=== PATIENT | female | born 1975 | race Caucasian/White ===

== ENCOUNTER → 2019-11-10 10:19 | Outpatient (BNVA) | payer MEDICAID, SELFPAY | PROVIDERS: Family Provider Nurse Practitioner; PCP Registered Nurse; Referring Provider Family Medicine; Visit Provider Podiatrist Foot & Ankle Surgery | DX: M79.671 Pain in right foot (principal); M25.571 Pain in right ankle and joints of right foot; M85.871 Other specified disorders of bone density and structure, right ankle and foot | CPT/HCPCS: 73610; 73630 ==

== ENCOUNTER 2020-03-04 13:21 | Outpatient (CLI) | payer MEDICAID, SELFPAY ==
[2020-03-04 13:58] LABS: Basophils # 0.1 10^3/uL (0.0-0.1); Basophils % 0.6 %; Eosinophils # 0.2 10^3/uL (0.0-0.8); Hematocrit 46.2 % (37.0-47.0); Lymphocytes # 3.4 10^3/uL (0.8-4.8); Lymphocytes % 35.4 %; Mean Corpuscular HGB Conc 32.5 g/dL (30.0-36.0); Mean Corpuscular Volume 98.5 fL (81-99); Mean Platelet Volume 11.8 fL (7.4-10.4); Monocytes # 0.3 10^3/uL (0.2-0.9); Neutrophils # 5.65 10^3/uL (1.8-7.7); Neutrophils % 58.7 %; Nucleated Red Blood Cells % 0 %; Platelet Count 191 10^3/cmm (130-400); Red Blood Count 4.69 10^6/uL (4.1-5.3); Red Cell Distribution Width 13.1 % (12.1-15.1); White Blood Count 9.6 10^3/uL (4.0-10.0)
--- NOTE | 2020-03-04 15:50 | ONC CON_ITS ---
Dr. Knight New Patient Note Patient: Rayne Franz Unit #: [id number]: 1975 Dicatated By: Valentin Knight M.D.Date of Visit: Mar 04, 2020 Onc MED New Patient/Consult Referring Physician: Dr. Hu Izaguirre M.D. History of Present Illness: Ms. Rayne Franz, is a 44-year-old female with yearlong history of 'too much' blood in her system , as per patient .she was just told on February 12, 2020 about this finding and was referred to hematology clinic for evaluation. Patient is a heavy smoker, smokes about pack a day for the last 20 years, prior to that , she used to smoke half a pack / day since age 12 or 13. She also has history of snoring and off-and-on gasping for air at night, as per patient, last time she noticed that about 4 months ago. She sleeps on the side and cannot lay on her back because of' acidity'. Patient said in recent past she had leg injury and during that time she used to sleep in recliner much better and he used to feel fresh next day otherwise usually she feels tired and fatigued all day long. Denies any headaches denies any chest pain or shortness breath denies any blurred vision double vision denies any abdominal fullness. Past Medical History: Ms. Franz's medical history consists of anxiety, hyperlipidemia, hypertension, and type II diabetes. Past Surgical History: Ms. Franz's surgical/procedural history consists of breast biopsy - right breast, fragmenting of kidney stone, right leg/ankle repair, tubal ligation, and hysterectomy in 2006. Medications: Acetaminophen 2 Tablet (of 500 mg) Oral daily, Aleve 1 Tablet (of 220 mg) Oral PRN, Clindamycin HCl 2 Capsule (of 150 mg) Oral t.i.d. PRN, Metoprolol Succinate ER 1 Tablet (of 25 mg) Tablet SR 24 HR Oral daily, Ozempic (0.25 or 0.5 MG/DOSE) 1 (2 mg/1.5mL) Subcutaneous q 7 days Allergies: No Known Allergies. Social History: Ms. Franz is single and she is unemployed. She is a daily smoker who has smoked 1.0 pack/day for 33 years. She has no history of drinking. She has indicated exposure to the following products: cigarettes. Ms. Franz reports the following support systems: lives with spouse, significant other, family, or friends, lives in own house, supportive family/friends willing to assist with needs, and adequate transportation available for expected visits. Her diet consists of regular meals. She indicates her activity level as: regular exercise. Family History: Ms. Franz's mother is alive. Ms. Franz's father is alive. Ms. Franz's maternal grandmother is : pancreatic cancer. Review Of Symptoms: Constitutional - Appetite is good and weight is stable. No fever or hot flashes. Positive for night sweats. Energy level is fair, ENMT - No sinus congestion/drainage. No mouth sores. No sore throat or difficulty swallowing, Hematologic/Lymphatic - No abnormal bruising or bleeding, Respiratory - Positive for shortness of breath. No cough. No pleuritic pain or hemoptysis, Cardiovascular - No angina pain. No palpitations, Gastrointestinal - No nausea or vomiting. Positive for heartburn, no acid reflux. No diarrhea or constipation. No blood in the stool or black stools, Genitourinary (F) - Positive for dysuria, no hematuria. Positive for nighttime urinary frequency. No urgency or incontinence, Musculoskeletal - Positive for joint and back pain, Neurologic - No headache or dizziness. No numbness or tingling. No other focal neurologic symptoms, Psychiatric - Positive for depression and insomnia. Vital Signs: Performed on Mar 04, 2020 15:05: 0, 38.56 (HIGH), 1.89 sq.m, 60.75 in, 96 %, 76 /min, 20 /min, 137/90 mm(hg), 98.5 F, and 202.4 lbs (HIGH). Performance Status: 0 - Fully active, able to carry on all predisease activities without restrictions. (ECOG) Physical Examination: ENMT - No mouth sores, no thrush, no jaundice, Respiratory - Lungs are clear, Cardiovascular - Regular rate and rhythm of heart, Abdomen - Soft, bowel sounds present, Extremities - , No visible edema. Lab/Imaging: Most recent lab results are not available for this patient. Impression: Mild polycythemia, etiology unclear could be reactive e.g. due to chronic smoking or due to possible underlying sleep apnea or primary marrow disorder like polycythemia vera but less likely Longstanding history of heavy smoking since age 13 Obesity, Plan: Discussed with patient regarding her labs white blood count 9.6 hemoglobin 15 hematocrit 46.2 platelets 191,000 with normal differential Clinically, patient is doing well with no signs symptom due to mild polycythemia moreover today's labs shows hemoglobin/hematocrit within normal range. Discussed with patient regarding possibilities causing polycythemia again which could be reactive to hypoxia due to sleep apnea, patient is obese and also with a history of gasping for air and snoring. Other possibility could be due to heavy smoking. And primary bone marrow disorder like polycythemia vera could be a possibility but less likely, patient has no family history and moreover she has obvious causes like chronic smoking as well obesity as well as signs symptom suggestive of sleep apnea, cannot explain this mild but fluctuating secondary polycythemia. At this point, patient was advised to quit smoking or at least not to smoke at all for 2 weeks prior to her visit to office in 1 month with CBC and will also request primary care physician to consider sleep study to rule out sleep apnea, as she may benefit from CPAP machine. Return to clinic in 1 month with CBC. Patient was advised to quit smoking and was offered any assistance she may need. Signed By: Valentin Knight M.D. <<Signature on File>>
== END 2020-03-04 13:22 | disposition home or self-care (01) ==
LOC: ONCMED 13:29
PROVIDERS: PCP Family Medicine; Visit Provider Internal Medicine Hematology & Oncology
DX: D75.1 Secondary polycythemia (principal); F17.210 Nicotine dependence, cigarettes, uncomplicated; E66.9 Obesity, unspecified; R06.83 Snoring; R53.83 Other fatigue
CPT/HCPCS: 85025; 99203

== ENCOUNTER 2020-03-17 10:09 | Outpatient (CLI) | payer MEDICAID, SELFPAY ==
--- NOTE | 2020-03-17 10:30 | MM_ITS ---
WS: [id number] BILATERAL DIGITAL SCREENING MAMMOGRAPHY WITH CAD CLINICAL INFORMATION: abscess of breast HISTORY: Screening mammogram. No current complaints. COMPARISON: None. TECHNIQUE: Bilateral CC and MLO views. FINDINGS: Scattered fibroglandular densities bilaterally. Palpable marker outer left breast. No underlying mamm ographic abnormalities. Ultrasound is pending. Lucent centered and punctate calcifications. Unremark able right breast. ULTRASOUND BREAST LEFT TECHNIQUE: Ultrasound left breast focused area of concern. CLINICAL INFORMATION: abscess of breast COMPARISON: None. FINDINGS: Ultrasound left breast at the 5:00 position area of concern. No evidence of underlying pathologic mas s or lesion. Normal underlying dense breast tissue. No other abnormalities. MM/[place] [id number] IMPRESSION: BI-RADS: 2-Benign FOLLOW UP: 1 Year Follow-up Recommend return to annual screening mammography.
--- NOTE | 2020-03-17 11:00 | US_ITS ---
WS: [id number] BILATERAL DIGITAL SCREENING MAMMOGRAPHY WITH CAD CLINICAL INFORMATION: abscess of breast HISTORY: Screening mammogram. No current complaints. COMPARISON: None. TECHNIQUE: Bilateral CC and MLO views. FINDINGS: Scattered fibroglandular densities bilaterally. Palpable marker outer left breast. No underlying mamm ographic abnormalities. Ultrasound is pending. Lucent centered and punctate calcifications. Unremark able right breast. ULTRASOUND BREAST LEFT TECHNIQUE: Ultrasound left breast focused area of concern. CLINICAL INFORMATION: abscess of breast COMPARISON: None. FINDINGS: Ultrasound left breast at the 5:00 position area of concern. No evidence of underlying pathologic mas s or lesion. Normal underlying dense breast tissue. No other abnormalities. US/US breast LT complete [id number] IMPRESSION: BI-RADS: 2-Benign FOLLOW UP: 1 Year Follow-up Recommend return to annual screening mammography.
== END 2020-03-17 10:10 | disposition home or self-care (01) ==
LOC: RADSHAW 10:12
PROVIDERS: PCP Family Medicine; Visit Provider Surgery
DX: N61.1 Abscess of the breast and nipple (principal)
CPT/HCPCS: 76641; 77066

== ENCOUNTER → 2021-03-17 08:38 | Outpatient (BNVA) | payer MEDICAID, SELFPAY | PROVIDERS: PCP Family Medicine; Visit Provider Internal Medicine Rheumatology | DX: R76.8 Other specified abnormal immunological findings in serum (principal); L73.2 Hidradenitis suppurativa; Z79.899 Other long term (current) drug therapy; M25.571 Pain in right ankle and joints of right foot; G89.29 Other chronic pain; F17.200 Nicotine dependence, unspecified, uncomplicated | CPT/HCPCS: 99203; 99204 ==

== ENCOUNTER 2021-03-17 10:33 | Outpatient (CLI) | payer MEDICAID, SELFPAY ==
[2021-03-17 11:19] LABS: Basophils # 0.1 10^3/uL (0.0-0.1); Basophils % 0.6 %; Eosinophils # 0.2 10^3/uL (0.0-0.8); Eosinophils % 1.6 %; Hematocrit 49.3 % (37.0-47.0); Lymphocytes # 4.8 10^3/uL (0.8-4.8); Lymphocytes % 34.5 %; Mean Corpuscular HGB Conc 32.5 g/dL (30.0-36.0); Mean Corpuscular Hemoglobin 32.3 pg (28.0-34.0); Mean Corpuscular Volume 99.6 fL (81-99); Mean Platelet Volume 11.2 fL (7.4-10.4); Monocytes # 0.7 10^3/uL (0.2-0.9); Monocytes % 4.7 %; Neutrophils # 8.12 10^3/uL (1.8-7.7); Neutrophils % 58.2 %; Nucleated Red Blood Cells % 0 %; Platelet Count 241 10^3/cmm (130-400); Red Blood Count 4.95 10^6/uL (4.1-5.3); Red Cell Distribution Width 13.2 % (12.1-15.1)
[2021-03-17 11:41] LABS: Urine Appearance Clear (CLEAR); Urine Color Yellow (Yellow); pH Urine 5 (5-7)
[2021-03-17 11:42] LABS: Bilirubin Urine Neg (Negative); Blood Urine Neg (Negative); Glucose Urine UA Norm (Normal); Ketones Urine Negative (Negative); Leukocyte Esterase Urine Negative (Negative); Nitrate Urine Negative (Negative); Protein Urine Neg (Negative); Urobilinogen Urine Norm (Negative)
[2021-03-17 11:43] LABS: Add Urine Culture? No; Bacteria Urine 1+ /hpf; Mucus Urine TRACE /hpf; RBC Urine RARE /hpf (0-2); Squamous Epithelial Cell Urine 0-4 /hpf (0-5); WBC Urine 0-4 /hpf (0-5)
[2021-03-17 11:47] LABS: Urine Creatinine 79 mg/dL (28-217); Urine Protein Random 6 mg/dL
[2021-03-17 11:48] LABS: Alanine Aminotransferase 22 U/L (0-33); Albumin Level 4.2 g/dL (3.5-5.2); Alkaline Phosphatase 110 IU/L (35-105); Aspartate Amino Transferase 31 U/L (0-32); Globulin 3.6 g/dL (1.3-4.6); Glomerular Filtration Rate 107.2 mL/min (90-130); Total Bilirubin 0.5 mg/dL (0.15-1.2); Total Protein 7.8 g/dL (6.6-8.7)
[2021-03-17 11:56] LABS: Slide Review Slide Review Perform
[2021-03-17 12:04] LABS: 25 Hydroxy Vitamin D 52 ng/mL (30-100)
[2021-03-18 11:07] LABS: COMPLEMENT, TOTAL (CH50) >60 U/mL (31-60)
[2021-03-18 11:33] LABS: COMPLEMENT COMPONENT C3C 145 mg/dL (83-193); COMPLEMENT COMPONENT C4C 23 mg/dL (15-57)
[2021-03-18 12:57] LABS: CENTROMERE B ANTIBODY <1.0 NEG AI (<1.0 NEG); JO-1 ANTIBODY <1.0 NEG AI (<1.0 NEG); RNP ANTIBODY 1.9 POS AI (<1.0 NEG); SCL-70 ANTIBODY <1.0 NEG AI (<1.0 NEG); SJOGREN'S ANTIBODY (SS-A) <1.0 NEG AI (<1.0 NEG); SM ANTIBODY <1.0 NEG AI (<1.0 NEG); SS-B <1.0 NEG AI (<1.0 NEG)
[2021-03-18 16:23] LABS: Thyroglobulin AB <1 IU/mL (< or = 1)
[2021-03-21 14:58] LABS: THYROID PEROXIDASE ANTIBODIES 1 IU/mL (<9)
[2021-03-22 15:47] LABS: ANA SCREEN, IFA POSITIVE (NEGATIVE)
[2021-03-22 15:52] LABS: ANA TITER 1:40 titer; Anti-Nuclear AB Pattern #2 Nuclear, Homogeneous; Anti-Nuclear Antibody Titer #2 1:40 titer
[2021-03-25 08:58] LABS: DNA AB (DS) CRITHIDIA,IFA NEGATIVE (NEGATIVE)
== END 2021-03-17 10:34 | disposition home or self-care (01) ==
LOC: LAB 10:41
PROVIDERS: PCP Family Medicine; Visit Provider Internal Medicine Rheumatology
DX: G89.29 Other chronic pain (principal); R76.8 Other specified abnormal immunological findings in serum; M25.571 Pain in right ankle and joints of right foot; Z79.899 Other long term (current) drug therapy
CPT/HCPCS: 36415; 80076; 81001; 82306; 82565; 82570; 84156; 85025; 86160; 86162; 86235; 86255; 86376; 86800

== ENCOUNTER → 2021-06-08 13:04 | Outpatient (BNVA) | payer MEDICAID, SELFPAY | PROVIDERS: PCP Family Medicine; Visit Provider Internal Medicine | DX: E11.649 Type 2 diabetes mellitus with hypoglycemia without coma (principal); E66.9 Obesity, unspecified; F17.200 Nicotine dependence, unspecified, uncomplicated; Z79.84 Long term (current) use of oral hypoglycemic drugs; Z68.37 Body mass index [BMI] 37.0-37.9, adult | CPT/HCPCS: 99204 ==

== ENCOUNTER → 2021-06-27 15:07 | Outpatient (BNVA) | payer MEDICAID, SELFPAY | PROVIDERS: PCP Family Medicine; Referring Provider Registered Nurse; Visit Provider Podiatrist Foot & Ankle Surgery | DX: T84.84XS Pain due to internal orthopedic prosthetic devices, implants and grafts, sequela (principal); X58.XXXS Exposure to other specified factors, sequela | CPT/HCPCS: 73610 ==

== ENCOUNTER 2021-12-02 05:46 | Day surgery (SDC) | payer MEDICAID, SELFPAY ==
[2021-12-01 10:55] VITALS: BMI 39.0
[2021-12-02] VITALS (8 sets, daily range): BP systolic 120–163; BP diastolic 79–102; PULSE 71–84; RESP 16–18; TEMP 36.2–36.8; O2SAT 92–100
[2021-12-02] MEDS: sodium chloride 0.9% 1,000 ML 30 ML IV (06:18)
[2021-12-02] MEDS: CELEcoxib 200 mg Capsule 400 MG PO (06:20)
[2021-12-02] MEDS: gabapentin 300 mg Capsule PO (06:20)
[2021-12-02 06:26] LABS: Glucose Point of Care 105 mg/dL (70-110)
--- NOTE | 2021-12-02 06:30 | P.ANESASSM_ITS ---
Pre-Anesthetic Assessment Height/Weight: Height 1.52 m Weight 90.718 kg Temp Pulse Resp BP Pulse Ox 97.2 F L 71 17 163/102 96 12/02/21 06:01 12/02/21 06:01 12/02/21 06:01 12/02/21 06:01 12/02/21 06:01 Preop Diagnosis: Painful hardware right ankle. Right ankle pain. Operation Date: 12/02/21 07:00 Proposed Procedures p Deep Hardware Removal right ankle 63364/02718/19.171(Right) - Flash Ordaz DPM s Ankle Arthroscopy(Right) - Flash Ordaz DPM Familial anesthetic complications: None Was Beta Daren taken within 24 hours: Yes Was Clonidine taken within 24 hours: N/A Last intake: Intake Last Liquid Date 12/01/21 Last Liquid Time 21:00 Last Solid Date 12/01/21 Last Solid Time 19:30 Social No alcohol and No tobacco Exam alert, oriented x 3, clear to auscultation bilaterally and regular rate & rhythm Airway Submandibular: within normal limits Cervical ROM: within normal limits Mallampati: Class II Dentition: false Pulmonary None reported CV/HEM Hypertension Stones Hepatic None reported GI Gastroesophageal Reflux Disease (Poorly controlled but does not have symptoms of reflux on empty stomach ) Metabolic Diabetes Mellitus Musc/skel None reported Anesthetic Plan ASA status: 2 Anesthesia: Anesthesia Evaluation, General and Regional (specify below) (Post op popliteal block for rescue) Other: We discussed risk and benefits of general anesthesia including PONV, sore throat (sometimes severe), corneal abrasion, positioning and peripheral nerve injuries, life threatening allergic reaction, post operative ICU admission requiring prolonged intubation, stroke, heart attack, , and rare incidences of recall. Patient request and consents to proceed with general anesthesia. We discussed risk and benefits of nerve block for post op pain control including management of pain and titration of pain medications as signs/symptoms of nerve block wearing off begin to appear and/or prior bed. We discussed risk of failed nerve block, vascular injury or other vital structure injury, abscess/infection, LAST, and nerve injury. Patient described an incidence of her daughter having prolonged paresthesia after a procedure which involved a nerve block. Patient does not want a block pre op. She would prefer to get through the case with multi modal analgesia. However, in the event she desires a rescue block post op she does consent to a post op block for pain as needed. Risk of > 500 ml blood loss (7ml/kg in children): No Medications/Allergies Home Medications Medication Instructions Recorded Confirmed Last Taken Type meloxicam 15 mg tablet 15 mg PO DAILY #30 tab 11/10/19 12/02/21 12/01/21 Rx calcium carb and lactate 200 2 tab PO DAILY 08/19/20 12/02/21 12/01/21 History mg-vitamin D3 6.25 mcg (250 unit) tablet metoprolol succinate 25 mg 25 mg PO DAILY tab 06/08/21 12/02/21 12/01/21 History tablet,extended release 24 hr (Toprol XL) Spectrum AFO to right #1 ea 06/27/21 12/02/21 Unknown Rx clindamycin phosphate 1 % lotion 1 applic TOPICAL BID PRN 12/01/21 12/02/21 Unknown History semaglutide (Ozempic) 0.5 mg SUBCUT .WEEKLY 12/01/21 12/02/21 11/25/21 History hydrocodone 10 mg-acetaminophen 1 tab PO Q6H 7 Days #28 tab 12/02/21 Unknown Rx 325 mg tablet Allergies Allergy/AdvReac Type Severity Reaction Status Date / Time No Known Allergies Allergy Verified 10/31/21 13:30 Current Medications Generic Name Dose Route Start Last Admin Trade Name Freq PRN Reason Stop Dose Admin Sodium Chloride 1,000 mls @ 30 mls/hr 12/02/21 06:00 12/02/21 06:18 Sodium Chloride 0.9% IV 12/03/21 05:59 30 mls/hr .Q24H WILLIE Administration PFSH Anesthesia Medical History Diabetes mellitus Hidradenitis suppurativa History of breast abscess Hypertension Kidney stones Lower extremity surgery planned Positive DAYNE (antinuclear antibody) Surgical History H/O tubal ligation History of ankle joint replacement History of hysterectomy Family History Father No problems noted. Mother Diabetes Hypertension Heart valve replaced Other CAD (coronary artery disease) Hyperlipidemia Lupus Rheumatoid arthritis Denies family history of Chronic kidney disease (CKD) Lung disease Cancer Stroke Social History Smoking and tobacco status: former smoker Quit status (tobacco): not considering quitting Second hand smoke exposure: No Smoking risk assessment/counseling performed?: Yes Alcohol intake: current Alcohol intake frequency: holidays/special occasions only Desire information about alcohol rehabilitation?: No Counseling given: No Desire information about substance/drug rehabilitation?: No Counseling given: No Adopted: No Caregiver/support person: No Lives independently: Yes Household members: children and other Housing: House Marital status: Number of children: 3 Highest education level completed: Bachelor's Degree service: No Current occupational status: unemployed Pets and animals: Yes History of recent travel: No Leisure activites: other Sexually active: Yes Current gender identity: Female Bertha/Anabaptist: Judaism Special bertha needs: No Agree to transfusion: Yes Data Anesthesia Cardiac Studies: No Data to Display
--- NOTE | 2021-12-02 06:44 | W.PM.OPSUD ---
Surgery/Procedure H&P Update DATE OF PROCEDURE: December 02, 2021 DATE H&P PERFORMED: 10/31/21 CHANGES TO PREVIOUS DOCUMENTATION: None PREOP DIAGNOSIS: Painful hardware right ankle. Right ankle pain. PLANNED PROCEDURE: Operation Date: 12/02/21 07:00 Proposed Procedures p Deep Hardware Removal right ankle 68411/20727/19.171(Right) - Flash Ordaz DPM s Ankle Arthroscopy(Right) - Flash Ordaz DPM
--- NOTE | 2021-12-02 07:00 | P.HP_ITS ---
Providers/Chief Complaint Primary Care Provider: STACIA Hines Chief Complaint: hardware failure, post traumatic arthritis rt ankl History of Present Illness Rayne Franz is a 46 year old female presents for surgical intervention to include right deep hardware ankle removal and right ankle arthroscopy. Patient denies any subjective nausea, vomiting, fever, chills, shortness of breath or chest pain. Review of Systems Const: Denies: fever(s), chills or fatigue Eyes: Denies: change in vision Card: Reports: swelling of feet/ankles; Denies: chest pain or palpitations Resp: Denies: dyspnea GI: Denies: abdominal pain, nausea, vomiting, diarrhea or constipation Musc: Reports: extremity pain, extremity swelling, joint stiffness and limited range of motion; Denies: joint redness or joint warmth Skin/Breast: Denies: erythema, changes in skin color or nail changes Neuro: Reports: difficulty walking; Denies: numbness in extremities Endo: Denies: excessive sweating or hot flashes Medications/Allergies Home Medications Medication Instructions Recorded Confirmed Last Taken Type meloxicam 15 mg tablet 15 mg PO DAILY #30 tab 11/10/19 12/02/21 12/01/21 Rx calcium carb and lactate 200 2 tab PO DAILY 08/19/20 12/02/21 12/01/21 History mg-vitamin D3 6.25 mcg (250 unit) tablet metoprolol succinate 25 mg 25 mg PO DAILY tab 06/08/21 12/02/21 12/01/21 History tablet,extended release 24 hr (Toprol XL) Spectrum AFO to right #1 ea 06/27/21 12/02/21 Unknown Rx clindamycin phosphate 1 % lotion 1 applic TOPICAL BID PRN 12/01/21 12/02/21 Unknown History semaglutide (Ozempic) 0.5 mg SUBCUT .WEEKLY 12/01/21 12/02/21 11/25/21 History hydrocodone 10 mg-acetaminophen 1 tab PO Q6H 7 Days #28 tab 12/02/21 Unknown Rx 325 mg tablet Allergies Allergy/AdvReac Type Severity Reaction Status Date / Time No Known Allergies Allergy Verified 10/31/21 13:30 PFSH PFSH: Medical History Diabetes mellitus Hidradenitis suppurativa History of breast abscess Hypertension Kidney stones Lower extremity surgery planned Positive DAYNE (antinuclear antibody) Surgical History H/O tubal ligation History of ankle joint replacement History of hysterectomy Family History Father No problems noted. Mother Diabetes Hypertension Heart valve replaced Other CAD (coronary artery disease) Hyperlipidemia Lupus Rheumatoid arthritis Denies family history of Chronic kidney disease (CKD) Lung disease Cancer Stroke Social History Smoking and tobacco status: former smoker Quit status (tobacco): not considering quitting Second hand smoke exposure: No Smoking risk assessment/counseling performed?: Yes Alcohol intake: current Alcohol intake frequency: holidays/special occasions only Desire information about alcohol rehabilitation?: No Counseling given: No Desire information about substance/drug rehabilitation?: No Counseling given: No Adopted: No Caregiver/support person: No Lives independently: Yes Household members: children and other Housing: House Marital status: Number of children: 3 Highest education level completed: Bachelor's Degree service: No Current occupational status: unemployed Pets and animals: Yes History of recent travel: No Leisure activites: other Sexually active: Yes Current gender identity: Female Bertha/Anglican: Congregational Special bertha needs: No Agree to transfusion: Yes Dietary Habits: Caffeine: Yes Vital Signs Vitals Signs: Last Vital Signs Temp 97.3 F L 12/02/21 08:47 Pulse 79 12/02/21 09:00 Resp 18 12/02/21 09:00 BP 131/90 12/02/21 09:00 Pulse Ox 93 12/02/21 09:00 Physical Exam Narrative: EXAM NARRATIVE: Patient is alert and oriented ?3 and in no acute distress.? The following is a focused bilateral lower extremity exam. VASCULAR: Dorsalis pedis arteries palpable +1 left, +2 at the right.? Posterior tibial arteries palpable +2 bilaterally. Capillary refill time less than 3 seconds to the distal hallux bilaterally. Calf is supple and nontender proximally and distally.? Hair growth pleasant legs and feet.? Mild edema nonpitting at the right ankle. NEUROLOGICAL: Protective sensation intact 10/10 sites, tested with Augusta Chelo monofilament to bilateral feet.? Positive Tinel's with percussion of the common peroneal nerve right leg. DERMATOLOGICAL: Well-healed cicatrix at the medial and lateral malleolus, right.? Dystrophic toenails x10.? Silver plaques bilateral feet. MUSCULOSKELETAL: Pain to palpation at the right lateral malleolus and at the right lateral gutter.? Range of motion at right ankle is smooth, no crepitus appreciated.? Muscle strength is 5 out of 5 in all 3 cardinal planes to the bilateral foot and ankle.? Pes planus foot type.? Patient ambulates without assistance.? Negative talar tilt test, negative anterior drawer sign to the right ankle.? Decreased muscle strength against inversion right foot. CARDIOVASCULAR: S1, S2, normal rate, normal rhythm.? Dorsalis pedis and posterior tibial arteries palpable. LUNGS: Clear to auscltation, no use of acessory muscles, no crackles or wheezes. A&P Assessment and plan (1) Painful orthopaedic hardware: Status: Acute (2) Right ankle pain: Status: Acute Qualifiers: Chronicity: chronic Qualified Code(s): M25.571 - Pain in right ankle and joints of right foot; G89.29 - Other chronic pain (3) Post-traumatic arthritis of right ankle: Status: Acute Plan Reviewed x-rays previously taken once again discussed hardware failure as expected with syndesmotic screws being left in place.? There is lucency around the screw consistent with micromotion x2.? Patient would like to have these removed would like to have the lateral plate and syndesmotic screws removed, right my recommendation was to incorporate an ankle scope as well for diagnostic and therapeutic purposes.? Risks include pain, bleeding, numbness, infection, failure to retrieve hardware, fractured and failed hardware, fragmented hardware, neuritis from ankle scope, fistula and need for further surgical intervention. She will follow up on 11/29/21 for her covid swab. nurse visit.. Deep hardware removal right ankle and right ankle scope scheduled December 02, 2021, outpatient, general anesthesia, popliteal block preoperatively would be appreciated I discussed risks versus benefits in clinic at today's visit.? Duration of procedure 90 minutes.? Supine, OR table. Coding Level of Care Code Acute Product Marketing Programs Manager for [facility] Uribe Diagnoses Painful orthopaedic hardware T84.84XA Right ankle pain M25.571; G89.29 Chronicity: chronic Post-traumatic arthritis of right ankle M19.171
[2021-12-02] MEDS: lidocaine 2% INJ 20 mL INJECTION ×2 (07:53→07:55)
--- NOTE | 2021-12-02 08:17 | P.OP_ITS ---
Operative Report Date of procedure: December 02, 2021 Pre-op diagnosis: Painful hardware right ankle. Posttraumatic arthritis right ankle. Post-op diagnosis: Same Procedure done: Deep hardware removal right ankle. CPT code 68748 Right ankle arthroscopy with debridement CPT code 21096 Implants: 2-0 Vicryl, 3-0 Vicryl, skin ruddy, 4-0 nylon Specimens removed/disposition: One third tubular plate right distal fibula and 7 screws. Pathology: None Surgeon: Flash Ordaz D.P.M. Editorial Manager: Marjorie Estimated blood loss: Less than 5 mL 45 IV fluids: None Urine output: None Complications: None Findings: Painful retained hardware right ankle Synovitis right ankle. Brief History: Reviewed x-rays previously taken once again discussed hardware failure as expected with syndesmotic screws being left in place.? There is lucency around the screw consistent with micromotion x2.? Patient would like to have these removed would like to have the lateral plate and syndesmotic screws removed, right my recommendation was to incorporate an ankle scope as well for diagnostic and therapeutic purposes.? Risks include pain, bleeding, numbness, infection, failure to retrieve hardware, fractured and failed hardware, fragmented hardware, neuritis from ankle scope, fistula and need for further surgical intervention. Procedure: Under mild sedation the patient was brought to the operating room and placed on the operating table in supine position. A timeout was performed. Anesthesia was then administered by the anesthesia service. Local anesthesia injected by myself 30 cc of one-to-one mixture 0.25% Marcaine plain and 2% lidocaine plain in a right ankle block fashion. Well-padded pneumatic tourniquet applied right high calf. Right lower extremity was then scrubbed, prepped and draped utilizing normal aseptic technique. Right foot was then exanguinated with an Esmarch bandage and the tourniquet inflated to 250 mmHg. Attention was directed to the right lateral ankle where over previous incision a linear longitudinal incision was made with a #15 blade with blunt and sharp dissection carried down to the layer of hardware at the right distal fibula. Total of 7 screws and the plate was removed and passed from operative field, all rough edges were smoothed and the incision was irrigated with copious amounts of sterile saline solution. Incision was then closed in a layered fashion with 2-0 Vicryl periosteum, 3-0 Vicryl subcutaneous tissue and skin ruddy. Attention was then directed to the right anterior ankle where a medial and lateral portal for ankle arthroscopy was established medial to the tibialis anterior tendon at the level ankle joint and lateral to the peroneal tertius level at the ankle joint. Portals were established utilizing a #11 blade on skin followed by curved mosquito. A Arthrex 1.9 mm Winsome scope was introduced medially and a 3.5 mm shaver and the lateral portal. Synovitis was debrided extensively at the anterior right ankle as well as at the medial and lateral gutters. Anatomic structures were inspected, no obvious osteochondral defects were appreciated on talar dome or tibial plafond. Passes ligament intact. Irrigation throughout the ankle was performed followed by closure of the portals both medial and laterally with 4-0 nylon. Incision sites were dressed with Adaptic, sterile 4 x 4, Kerlix and Macario wrap. Cam boot was applied. Tourniquet was deflated and a prompt hyperemic response was noted to the distal digits of the right foot. Patient tolerated the procedure and anesthesia well and was transferred to the PACU with vital signs stable and vascular status intact. Following a period of postop monitoring she will be discharged home may be weightbearing as tolerated is to elevate her right foot while resting. Will be following up in podiatry clinic next week for her first dressing change.
--- NOTE | 2021-12-02 08:30 | XR_ITS ---
WS: [id number] Exam: XR ankle RT 2V [id number] Date/Time of Exam: 12/02/2021 8:30 AM Reason For Exam: post op Comparison 06/27/2021. A plate and multiple screws have been removed from the fibula. Surgical skin clips are noted laterall y. There are still screws in the medial malleolus and lower right tibia secondary to prior fracture w ith fixation. Mild degenerative change of the ankle mortise. A boot immobilizes the ankle and foot. XR/XR ankle RT 2V [id number] IMPRESSION: 1. Surgical removal of the fibular hardware as noted above.
[2021-12-02] MEDS: HYDROcodone-acetaminophen 10-325 mg Tablet 1 TAB PO (08:55)
--- NOTE | 2021-12-02 12:59 | ANE.PACU2 ---
Inpatient post-anesthesia follow up: Airway intact: Yes Vital signs: Temperature 97.3 F Pulse Rate 79 Respiratory Rate 18 Blood Pressure 131/90 Pulse Oximetry 93 Oxygen Delivery Me thod Room Air Oxygen Flow Rate 5 Fraction of Inspir ed Oxygen Hydration adequate: Yes Nausea and vomiting: No Pain level: 5 Mental status: Baseline
== END 2021-12-02 09:17 | disposition home or self-care (01) ==
PROVIDERS: PCP Registered Nurse; Visit Provider Podiatrist Foot & Ankle Surgery
PROC: (CPT 20680; principal; 2021-12-02 07:00)
PROC: (CPT 20680; 2021-12-02 07:00)
DX: T84.84XA Pain due to internal orthopedic prosthetic devices, implants and grafts, initial encounter (principal); M25.571 Pain in right ankle and joints of right foot; G89.29 Other chronic pain; M19.171 Post-traumatic osteoarthritis, right ankle and foot; I10 Essential (primary) hypertension; K21.9 Gastro-esophageal reflux disease without esophagitis; E11.9 Type 2 diabetes mellitus without complications; Z87.891 Personal history of nicotine dependence
CPT/HCPCS: 20680; 29898; 36416; 73600; 82962; J0330; J0690; J1100; J1200; J2370; J2405; J2704; J2765; J2795; J3010; J3490; J7030

== ENCOUNTER 2022-05-09 11:05 | Outpatient (CLI) | payer MEDICAID, SELFPAY ==
--- NOTE | 2022-05-09 11:16 | MM_ITS ---
WS: [id number] BILATERAL SCREENING DIGITAL TOMOSYNTHESIS MAMMOGRAM WITH CAD HISTORY: SCREENING COMPARISON: 03/17/2020 and 02/11/2013 Bilateral CC and MLO views with tomosynthesis and synthetic mammography submitted. Computer aided det ection analyzed. Breast composition: There are scattered areas of fibroglandular density. No suspicious masses, microc alcifications or architectural distortion. Benign calcifications in each breast. MM/[place] [id number] IMPRESSION: BI-RADS: 2-Benign FOLLOW UP: 1 Year Follow-up
== END 2022-05-09 11:06 | disposition home or self-care (01) ==
PROVIDERS: PCP Registered Nurse; Visit Provider Registered Nurse
DX: Z12.31 Encounter for screening mammogram for malignant neoplasm of breast (principal)
CPT/HCPCS: 77063; 77067

== ENCOUNTER → 2023-12-18 08:50 | Outpatient (BNVA) | payer MEDICAID, SELFPAY | PROVIDERS: PCP Registered Nurse; Visit Provider Orthopaedic Surgery | DX: S89.91XA Unspecified injury of right lower leg, initial encounter (principal); M25.561 Pain in right knee; X58.XXXA Exposure to other specified factors, initial encounter | CPT/HCPCS: 73562; 73610 ==

== ENCOUNTER 2023-12-18 11:02 | Outpatient (CLI) | payer MEDICAID, SELFPAY | END 2023-12-18 11:03 | disposition home or self-care (01) | LOC: SPT 11:05 | PROVIDERS: PCP Registered Nurse; Visit Provider Orthopaedic Surgery | DX: Z46.89 Encounter for fitting and adjustment of other specified devices (principal); S82.141D Displaced bicondylar fracture of right tibia, subsequent encounter for closed fracture with routine healing; X58.XXXD Exposure to other specified factors, subsequent encounter | CPT/HCPCS: L1832 ==

== ENCOUNTER 2023-12-20 16:33 | Outpatient (CLI) | payer MEDICAID, SELFPAY ==
--- NOTE | 2023-12-20 16:34 | CT_ITS ---
WS: [id number] CT RIGHT KNEE, NONCONTRAST HISTORY: S82.141A - Displaced bicondylar fracture of right tibia, ... Technique: All CT scans at [facility] use at least one of these dose optimization techniques: automated exposure control; mA and/or kV adjustment per patient size (includes targeted exams where dose is matched to clinical indication); or iterative reconstruction. DLP: 446.72 mGy.cm COMPARISON: Radiograph 12/18/2023 Comminuted fracture with mild displacement involving the tibial plateau with extension into the metap hysis. Comminuted fracture extends along the medial anterior tibial plateau and extends posteriorly a nd laterally. Approximately 5 mm of depression of the lateral tibial plateau. Fracture extends throug h the base of the tibial spines. Fracture extends approximately 4.5 cm into the proximal tibia. The p osterior lateral tibial plateau is displaced by 9 mm. Small osseous fragments along the joint line. Nondisplaced fibular head fracture. Moderate size hemarthrosis. Patella is intact. No femoral condyle fracture. CT/CT knee RT wo con* [id number] IMPRESSION: 1. Complex tibial plateau fracture with extension into the tibial metaphysis. Mild posterior displacement by 9 mm. 2. Lateral tibial plateau depressed by 5 mm. 3. Nondisplaced fibular head fracture. Notified Reno Duran DO at 12/21/2023 8:23 AM.
== END 2023-12-20 16:34 | disposition home or self-care (01) ==
LOC: RAD 16:33
PROVIDERS: PCP Registered Nurse; Visit Provider Orthopaedic Surgery
DX: S82.141A Displaced bicondylar fracture of right tibia, initial encounter for closed fracture (principal); X58.XXXA Exposure to other specified factors, initial encounter
CPT/HCPCS: 73700

== ENCOUNTER 2023-12-21 12:36 | Emergency (ER) | payer MEDICAID, SELFPAY ==
--- NOTE | 2023-12-21 12:39 | XR_ITS ---
WS: [id number] Portable AP upright chest, 12/21/2023 Clinical Data: cp Comparison: None. Findings: No nodules, masses or effusions are seen. The heart is normal. The pulmonary vascularity is not increased. No pneumonia or pneumothorax is seen. XR/XR chest 1V portable [id number] Impression: Negative chest.
[2023-12-21 12:41] VITALS: BP 149/89; PULSE 97; RESP 18; TEMP 36.8; O2SAT 97; BMI 38.0
--- NOTE | 2023-12-21 12:45 | ECG_ITS ---
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 Measurements Intervals [place] Rate: 103 P: 38 CA: 149 QRS: 19 QRSD: 82 T: 30 QT: 298 QTc: 391 Interpretive Statements SINUS TACHYCARDIA No previous ECG available for comparison Electronically Signed On 12-21-2023 14:48:27 CDT by William Levy M.D. [id number]
[2023-12-21 13:29] LABS: Basophils % 0.4 %; Eosinophils # 0.1 10^3/uL (0.0-0.8); Eosinophils % 1.3 %; Hematocrit 44.3 % (36-47); Lymphocytes # 1.1 10^3/uL (0.8-4.8); Lymphocytes % 16.8 %; Mean Corpuscular HGB Conc 31.8 g/dL (30-55); Mean Corpuscular Hemoglobin 31.5 pg (27-33); Mean Corpuscular Volume 98.9 fl (85-98); Mean Platelet Volume 11.3 fL (7.4-10.4); Monocytes # 0.3 10^3/uL (0.2-0.9); Monocytes % 3.9 %; Neutrophils # 5.16 10^3/uL (1.8-7.7); Neutrophils % 77.3 %; Nucleated Red Blood Cells % 0 %; Platelet Count 143 10^3/cmm (157-399); Red Blood Count 4.48 10^6/uL (3.85-5.65); Red Cell Distribution Width 13.4 % (12.1-15.1); White Blood Count 6.68 10^3/uL (3.29-11.43)
[2023-12-21 13:44] LABS: INR 1.08 (0.8-1.2)
[2023-12-21 13:47] LABS: Troponin(5th) Baseline 14 ng/L (0-10)
[2023-12-21 13:54] LABS: Alanine Aminotransferase 20 U/L (0-33); Albumin Level 3.6 g/dL (3.5-5.2); Alkaline Phosphatase 157 U/L (35-105); Anion Gap 13.8 (5-19); Aspartate Amino Transferase 31 U/L (0-32); Blood Urea Nitrogen 7 mg/dL (6-20); Calcium 9.5 mg/dL (8.5-10.5); Carbon Dioxide 25 mmol/L (22-29); Chloride 103 mmol/L (98-107); Creatinine Clr Calc Pharmacy 110.9965; Globulin 3.1 g/dL (1.3-4.6); Glomerular Filtration Rate 105.8 mL/min (90-130); Glucose 245 mg/dL (65-115); Lipase 45 U/L (13-60); Osmolality Calculated 292 mOsm/kg (285-295); Potassium 3.8 mmol/L (3.5-5.1); Sodium 138 mmol/L (136-145); Total Bilirubin 0.5 mg/dL (0.15-1.2); Total Protein 6.7 g/dL (6.6-8.7)
--- NOTE | 2023-12-21 14:06 | ED_ITS ---
HPI - Anxiety 2 General: Chief Complaint: Anxiety Stated Complaint: chest burning, left arm numbness Time Seen by Provider: 12/21/23 13:33 Source: patient and EMS Mode of arrival: EMS Limitations: no limitations History of Present Illness: 48-year-old female states that she start ed having sudden onset of shortness of breath chest pain this morning. She states she does have a history of anxiety and was feeling quite anxious. She states that she called EMS due to states since being here her symptoms have resolved still has some very mild pain dyspnea currently. She denies any vomiting or diarrhea. Denies any fevers. Associated symptoms: Reports chest pain and palpitations; Deny chills, fever(s), headache(s), nausea or vomiting Review of Systems 2 Const: Denies: fever(s), chills, body aches or change in appetite Eyes: Denies: eye discomfort ENMT: Denies: throat pain or dental pain Card: Reports: chest pain and palpitations Resp: Reports: dyspnea GI: Denies: abdominal pain, nausea, vomiting or diarrhea Musc: Denies: neck pain or back pain Skin/Breast: Denies: rash Neuro: Denies: headache(s) PFSH ED 2 PFSH: Medical History Kidney stones Hidradenitis suppurativa Positive DAYNE (antinuclear antibody) History of breast abscess Diabetes mellitus Hypertension Lower extremity surgery planned Surgical History H/O tubal ligation History of ankle joint replacement History of hysterectomy Family History Father No problems noted. Mother Diabetes Hypertension Heart valve replaced Other CAD (coronary artery disease) Hyperlipidemia Lupus Rheumatoid arthritis Denies family history of Chronic kidney disease (CKD) Lung disease Cancer Stroke Social History Smoking and tobacco/nicotine status: current every day tobacco/nicotine user cigarettes Packs smoked per day: 1 Quit status (tobacco/nicotine): not considering quitting Second hand smoke exposure: No Alcohol intake: current Alcohol intake frequency: holidays/special occasions only Substance/Drug Use: never Adopted: No Caregiver/support person: No Lives independently: Yes Household members: children and other Housing: House Marital status: Number of children: 3 Highest education level completed: Bachelor's Degree service: No Current occupational status: unemployed Pets and animals: Yes Leisure activites: other Sexually active: Yes Do you think of yourself as: Straight/Heterosexual Current gender identity: Female Bertha/Synagogue: [employer] Special bertha needs: No Agree to transfusion: Yes Physical Exam 2 Const: COMMON NORMALS: no acute distress, patient oriented x3 and healthy appearing HENMT: COMMON NORMALS: normocephalic and atraumatic HEAD & SCALP: n ormocephalic and atraumatic Eye: COMMON NORMALS: Equal, round and reactive pupils present and EOMs intact bilaterally PUPIL: Yes Equal, round and reactive pupils present Neck/C-Spine: COMMON NORMALS: full ROM and supple Chest: COMMONS NORMALS: normal inspection of the chest and normal palpation of entire chest wall Resp: COMMON NORMALS: normal respiratory effort, No retractions, No use of accessory muscles and clear to auscultation bilaterally AUSCULTATION: clear to auscultation bilaterally Cardio: COMMON NORMALS: regular rate, regular rhythm and No murmurs present (Cardio) RATE: regular rate RHYTHM: regular rhythm GI: COMMON NORMALS: Normal to inspection, nondistended, normoactive bowel sounds present, Soft to palpation, non-tender and no masses PALPATION: Yes Soft to palpation Extremity: COMMON NORMALS: normal to inspection and full ROM Neuro: COMMON NORMALS: patient oriented x3, moves all extremities and no focal motor deficits Psych: COMMON NORMALS: mental status grossly normal, Normal thought process present and cooperative THOUGHT PROCESS: Normal thought process present Skin: COMMON NORMALS: no rashes or lesions noted and no wounds GENERAL SKIN EXAM: no rashes or lesions noted Course 2 Vital Signs: Vital signs: Vital Signs Temperature 98.3 F 12/21/23 12:41 Pulse Rate 90 12/21/23 15:47 Respiratory Rate 21 H 12/21/23 15:21 Blood Pressure 144/98 12/21/23 15:47 Pulse Oximetry 92 12/21/23 15:47 Oxygen Delivery Me thod Room Air 12/21/23 15:21 MDM - Anxiety Medical Decision Making Patient presents here with chest pain she been chest pain-free here blood work here is normal troponins were normal CT shows no signs of PE or dissection I did inform her of the incidental finding of pulmonary nodule and adrenal mass she did know the adrenal mass and states has been following with her PCP with this. She is to follow-up with PCP for chest pain return if worsening she understands agrees to plan Medical Records I reviewed the patient's medical records. Lab Data I reviewed the patient's lab results. 12/21/23 13:16 12/21/23 13:16 Radiology Impressions Chest X-Ray 12/21/23 12:39 Impression: Negative chest. Chest CTA 12/21/23 15:23 IMPRESSION: 1. No larger central or segmental pulmonary embolism, but a smaller subsegmental PE cannot be excluded due to limitations. 2. 6 mm ground-glass nodule right mid lung. Recommend CT Chest at 6-12 months to confirm persistence of the nodule, then CT Chest at 3 years and 5 years. (Reference: Lupis). 3. 3.6 cm x 3.1 cm by 3.7 cm left adrenal mass. This contains low-density elements, so it could be an adenoma or myelolipoma, but this is uncertain. This should be further characterized with a multiphasic CT scan or contrast-enhanced MRI. 4. Additional details as above. REFERENCES: Lupis Yao, et al. Guidelines for Management of Incidental Pulmonary Nodules Detected on CT Images: From the Fleischner Society 2017. Radiology. 2017;284(1):228-243. Laboratory Results WBC 6.68 10^3/uL (3.29-11.43) 12/21/23 13:16 RBC 4.48 10^6/uL (3.85-5.65) 12/21/23 13:16 Hgb 14.10 g/dL (11.27-16.99) 12/21/23 13:16 Hct 44.3 % (36-47) 12/21/23 13:16 MCV 98.9 fl (85-98) H 12/21/23 13:16 MCH 31.5 pg (27-33) 12/21/23 13:16 MCHC 31.8 g/dL (30-55) 12/21/23 13:16 RDW 13.4 % (12.1-15.1) 12/21/23 13:16 Plt Count 143 10^3/cmm (157-399) L 12/21/23 13:16 MPV 11.3 fL (7.4-10.4) H 12/21/23 13:16 Neut % (Auto) 77.3 % 12/21/23 13:16 Lymph % (Auto) 16.8 % 12/21/23 13:16 [place] % (Auto) 3.9 % 12/21/23 13:16 Eos % (Auto) 1.3 % 12/21/23 13:16 Baso % (Auto) 0.4 % 12/21/23 13:16 Neut # (Auto) 5.16 10^3/uL (1.8-7.7) 12/21/23 13:16 Lymph # (Auto) 1.1 10^3/uL (0.8-4.8) 12/21/23 13:16 [place] # (Auto) 0.3 10^3/uL (0.2-0.9) 12/21/23 13:16 Eos # (Auto) 0.1 10^3/uL (0.0-0.8) 12/21/23 13:16 Baso # (Auto) 0.0 10^3/uL (0.0-0.1) 12/21/23 13:16 Nucleated RBC % (auto) 0 % 12/21/23 13:16 Nucleated RBCs # 0.0 /100WBC 12/21/23 13:16 PT 14.40 SECONDS (12.1-14.9) 12/21/23 13:16 INR 1.08 (0.8-1.2) 12/21/23 13:16 D-Dimer 2.27 ug/mLFEU (0-0.59) H 12/21/23 13:16 Sodium 138 mmol/L (136-145) 12/21/23 13:16 Potassium 3.8 mmol/L (3.5-5.1) 12/21/23 13:16 Chloride 103 mmol/L (98-107) 12/21/23 13:16 Carbon Dioxide 25 mmol/L (22-29) 12/21/23 13:16 Anion Gap 13.8 (5-19) 12/21/23 13:16 BUN 7 mg/dL (6-20) 12/21/23 13:16 Creatinine 0.6 mg/dL (0.5-0.9) 12/21/23 13:16 GFR Calculation 105.8 mL/min (90-130) 12/21/23 13:16 Glucose 245 mg/dL (65-115) H 12/21/23 13:16 Calculated Osmolality 292 mOsm/kg (285-295) 12/21/23 13:16 Calcium 9.5 mg/dL (8.5-10.5) 12/21/23 13:16 Total Bilirubin 0.5 mg/dL (0.15-1.2) 12/21/23 13:16 AST 31 U/L (0-32) 12/21/23 13:16 ALT 20 U/L (0-33) 12/21/23 13:16 Alkaline Phosphatase 157 U/L (35-105) H 12/21/23 13:16 Troponin T Baseline 14 ng/L (0-10) H 12/21/23 13:16 Troponin T 120 Minute 16.24 ng/L (0-10) H 12/21/23 14:50 Delta Troponin T 2.24 ABS# (0-10) 12/21/23 14:50 Total Protein 6.7 g/dL (6.6-8.7) 12/21/23 13:16 Albumin 3.6 g/dL (3.5-5.2) 12/21/23 13:16 Globulin 3.1 g/dL (1.3-4.6) 12/21/23 13:16 Lipase 45 U/L (13-60) 12/21/23 13:16 XR interpretation done by ED provider, pending radiology final review EKG Data EKG 2: I personally reviewed and interpreted this EKG as follows: EKG interpretation date: 12/21/23 EKG interpretation time: 14:48 Interpretation: Chest X-Ray 12/21/23 12:39 Impression: Negative chest. Chest CTA 12/21/23 15:23 IMPRESSION: 1. No larger central or segmental pulmonary embolism, but a smaller subsegmental PE cannot be excluded due to limitations. 2. 6 mm ground-glass nodule right mid lung. Recommend CT Chest at 6-12 months to confirm persistence of the nodule, then CT Chest at 3 years and 5 years. (Reference: Lupis). 3. 3.6 cm x 3.1 cm by 3.7 cm left adrenal mass. This contains low-density elements, so it could be an adenoma or myelolipoma, but this is uncertain. This should be further characterized with a multiphasic CT scan or contrast-enhanced MRI. 4. Additional details as above. REFERENCES: Lupis Yao et al. Guidelines for Management of Incidental Pulmonary Nodules Detected on CT Images: From the Fleischner Society 2017. Radiology. 2017;284(1):228-243. nsr hr [address] or t wave abnormalities qrs 90 qtc 380 Other EKG comments: Chest X-Ray 12/21/23 12:39 Impression: Negative chest. Chest CTA 12/21/23 15:23 IMPRESSION: 1. No larger central or segmental pulmonary embolism, but a smaller subsegmental PE cannot be excluded due to limitations. 2. 6 mm ground-glass nodule right mid lung. Recommend CT Chest at 6-12 months to confirm persistence of the nodule, then CT Chest at 3 years and 5 years. (Reference: Lupis). 3. 3.6 cm x 3.1 cm by 3.7 cm left adrenal mass. This contains low-density elements, so it could be an adenoma or myelolipoma, but this is uncertain. This should be further characterized with a multiphasic CT scan or contrast-enhanced MRI. 4. Additional details as above. REFERENCES: Stephaniehoeladio H, et al. Guidelines for Management of Incidental Pulmonary Nodules Detected on CT Images: From the Fleischner Society 2017. Radiology. 2017;284(1):228-243. Discharge Plan Discharge Patient Disposition: Home Clinical Impression: Chest pain Condition: Stable Prescriptions: No Action meloxicam 15 mg tablet 15 mg PO DAILY Qty: 30 1RF metoprolol succinate [Toprol XL] 25 mg tablet extended release 24 hr 25 mg PO DAILY (DME) Spectrum AFO to right See Rx Instructions .Route .MEDSUPPLY Qty: 1 0RF Rx Instructions: As directed by JOURDAN&O hydrocodone-acetaminophen 5-325 mg tablet 1 tab PO TID PRN (Reason: pain) 7 Days Qty: 21 0RF (DME) hinged knee brace See Rx Instructions .Route .MEDSUPPLY Qty: 1 0RF Rx Instructions: As directed Ozempic 0.25 mg or 0.5 mg(2 mg/1.5 mL) pen injector 1 mg SUBCUT .WEEKLY Rx Instructions: ON amoxicillin 500 mg capsule 500 mg PO Q12H acetaminophen 500 mg Tablet 500 mg PO Q6H PRN (Reason: Pain) ibuprofen 200 mg Tablet 200 mg PO Q6H PRN (Reason: Pain) Discharge Orders: Discharge ED (Routine); Ordered 12/21/23 Ordered By: Roverto Fernández Referrals: Todd Castaneda CPNP [Primary Care Provider] - 4-7 days Discharge Diet: Advance as tolerated Discharge Activity: Resume usual activity Patient Instructions: Chest Pain (ED) Activity Restrictions/Additional Instructions: On CT it did show a pulmonary nodule along with adrenal mass that needs followed up outpatient with your PCP Coding Level of Care Code ED Cosmetic Assembler for Eden Uribe
[2023-12-21] MEDS: labetalol 5 mg/mL SDV 20mL 10 MG IVP (14:10)
[2023-12-21 14:14] VITALS: BP 176/99; PULSE 109
[2023-12-21 14:17] LABS: D Dimer 2.27 ug/mLFEU (0-0.59)
--- NOTE | 2023-12-21 14:48 | ECG_ITS ---
[facility] Test Date: 2023-12-21 Pat Name: Rayne Hylton Department: Room: Gender: Female Program Development Specialist: : 1975 Requested By: Roverto Fernández Order Number: [id number] Bernadette MD: William Levy M.D. Measurements Intervals [place] Rate: 92 P: 27 IN: 154 QRS: 25 QRSD: 90 T: 35 QT: 330 QTc: 409 Interpretive Statements SINUS RHYTHM Compared to ECG 12/21/2023 12:45:31 Sinus tachycardia no longer present Electronically Signed On 12-21-2023 14:50:20 CDT by William Levy M.D. [id number]
[2023-12-21 15:21] VITALS: BP 133/78; PULSE 90; RESP 21; O2SAT 93
--- NOTE | 2023-12-21 15:23 | CTR_ITS ---
PROCEDURE INFORMATION: Exam: CTA Chest With Contrast Exam date and time: 12/21/2023 4:00 PM Age: 48 years old Clinical indication: Hyperventilation and shortness of breath; Additional info: SOB TECHNIQUE: Imaging protocol: Computed tomographic angiography of the chest with contrast. Exam focused on the arteries. 3D rendering (Not supervised by radiologist): MIP and/or 3D reconstructed images were created by the technologist. Radiation optimization: All CT scans at this facility use at least one of these dose optimization techniques: automated exposure control; mA and/or kV adjustment per patient size (includes targeted exams where dose is matched to clinical indication); or iterative reconstruction. Contrast material: OMNI 350; Contrast volume: 67 ml; Contrast route: INTRAVENOUS (IV); COMPARISON: CR XR chest 1V portable [id number] 12/21/2023 1:45 PM RADIATION DOSE METRICS: Total DLP (mGy-cm): 441.1 FINDINGS: Pulmonary arteries: There are limitations to the this examination. There is no larger central or segmental pulmonary embolism, but a small subsegmental pulmonary embolism cannot be excluded by this CTA. Pulmonary arteries are normal in caliber. Aorta: Unremarkable. No aortic aneurysm. No aortic dissection. Lungs: 6 mm ground-glass nodular opacity right mid lung image 25 axial series 4. Tiny amount of bilateral dependent subsegmental atelectasis. Otherwise, unremarkable. Pleural spaces: Unremarkable. No pneumothorax. No pleural effusion. Heart: Normal heart size. No evidence of right heart strain. The right ventricular to left ventricular ratio is 0.8. Lymph nodes: Unremarkable. No enlarged lymph nodes. Adrenal glands: 3.6 cm by 3.1 cm by 3.7 cm left adrenal mass. This contains low-density elements suggesting it could be a lipid rich adenoma or myelolipoma. This should be further characterized with multiphase CT scanning or contrast-enhanced MRI. Otherwise, unremarkable. Bones/joints: Mild scoliosis. Mild and moderate multilevel spondylosis. Otherwise, unremarkable. Soft tissues: Otherwise, unremarkable visualized body wall. Otherwise, unremarkable soft tissues. CT/CT angio chest PE protcl [id number] IMPRESSION: 1. No larger central or segmental pulmonary embolism, but a smaller subsegmental PE cannot be excluded due to limitations. 2. 6 mm ground-glass nodule right mid lung. Recommend CT Chest at 6-12 months to confirm persistence of the nodule, then CT Chest at 3 years and 5 years. (Reference: Lupis). 3. 3.6 cm x 3.1 cm by 3.7 cm left adrenal mass. This contains low-density elements, so it could be an adenoma or myelolipoma, but this is uncertain. This should be further characterized with a multiphasic CT scan or contrast-enhanced MRI. 4. Additional details as above. REFERENCES: Lupis Yao, et al. Guidelines for Management of Incidental Pulmonary Nodules Detected on CT Images: From the Fleischner Society 2017. Radiology. 2017;284(1):228-243.
[2023-12-21 15:27] LABS: Troponin 5 2HR 16.24 ng/L (0-10); Troponin 5 2HR Delta 2.24 ABS# (0-10)
[2023-12-21 15:47] VITALS: BP 144/98; PULSE 90; O2SAT 92
[2023-12-21] MEDS: iohexol 350 mg/mL 500 mL Btl (per mL) IV (16:00)
[2023-12-21 16:51] VITALS: BP 125/79; PULSE 96; O2SAT 94
[2023-12-21 17:07] VITALS: BP 125/79; PULSE 96; O2SAT 94
== END 2023-12-21 17:08 | disposition home or self-care (01) ==
PROVIDERS: Emergency Provider Emergency Medicine; PCP Registered Nurse
DX: R07.9 Chest pain, unspecified (principal); Z79.85 Long-term (current) use of injectable non-insulin antidiabetic drugs; E11.9 Type 2 diabetes mellitus without complications; I10 Essential (primary) hypertension; F17.210 Nicotine dependence, cigarettes, uncomplicated
CPT/HCPCS: 36415; 71045; 71275; 80053; 83690; 84484; 85025; 85378; 85610; 93005; 96374; 99285; J3490; Q9967

== ENCOUNTER 2023-12-28 14:12 | Outpatient (CLI) | payer MEDICAID, SELFPAY ==
--- NOTE | 2023-12-28 14:30 | USCV_ITS ---
Rayne Hylton Age: 48 Gender: F : 1975 Exam Date: 12/28/2023 14:39 Ordering Phys: Reno Duran DO Technologist: Patrick Arrieta Exam Location: [facility] [place]_ Indication: Swelling HISTORY: Lower extremity swelling. PROCEDURES: Venous duplex imaging was performed in only the right lower extremity. The following venous structures were evaluated: common femoral vein, profunda vein, proximal portion of the greater saphenous vein, superficial femoral vein, and the popliteal vein. In addition, the posterior tibial veins were evaluated. In addition, the posterior tibial and peroneal trunk were evaluated. Serial compression, augmentation maneuvers, and spectral Doppler flow evaluation were performed. FINDINGS: No evidence of DVT seen in any vessel visualized at this time. CONCLUSIONS No evidence of right lower extremity DVT. Good Encarnacion MD (Electronically Signed) Final Date: 28 Dec 2023 15:58 S
== END 2023-12-28 14:13 | disposition home or self-care (01) ==
LOC: RAD 14:12
PROVIDERS: PCP Registered Nurse; Visit Provider Orthopaedic Surgery
DX: S82.141A Displaced bicondylar fracture of right tibia, initial encounter for closed fracture (principal); R22.41 Localized swelling, mass and lump, right lower limb
CPT/HCPCS: 93971

== ENCOUNTER → 2024-01-17 08:30 | Outpatient (BNVA) | payer MEDICAID, SELFPAY | PROVIDERS: PCP Registered Nurse; Visit Provider Orthopaedic Surgery | DX: S82.141A Displaced bicondylar fracture of right tibia, initial encounter for closed fracture (principal); X58.XXXA Exposure to other specified factors, initial encounter | CPT/HCPCS: 73562 ==

== ENCOUNTER → 2024-02-28 08:03 | Outpatient (BNVA) | payer MEDICAID, SELFPAY | PROVIDERS: PCP Registered Nurse; Visit Provider Orthopaedic Surgery | DX: S82.141A Displaced bicondylar fracture of right tibia, initial encounter for closed fracture (principal); X58.XXXA Exposure to other specified factors, initial encounter | CPT/HCPCS: 73562 ==

== ENCOUNTER → 2024-06-03 07:59 | Outpatient (BNVA) | payer MEDICAID, SELFPAY | PROVIDERS: PCP Registered Nurse; Visit Provider Orthopaedic Surgery | DX: S82.141A Displaced bicondylar fracture of right tibia, initial encounter for closed fracture (principal); X58.XXXA Exposure to other specified factors, initial encounter; Z09 Encounter for follow-up examination after completed treatment for conditions other than malignant neoplasm | CPT/HCPCS: 73562 ==

== ENCOUNTER → 2024-09-02 13:08 | Outpatient (BNVA) | payer MEDICAID, SELFPAY | PROVIDERS: PCP Registered Nurse; Visit Provider Orthopaedic Surgery | DX: S82.141A Displaced bicondylar fracture of right tibia, initial encounter for closed fracture (principal); X58.XXXA Exposure to other specified factors, initial encounter | CPT/HCPCS: 73562 ==

== ENCOUNTER 2024-09-15 10:11 | Outpatient (CLI) | payer MEDICAID, SELFPAY ==
[2024-09-15] MEDS: iohexol 350 mg/mL 500 mL Btl (per mL) IV (10:29)
--- NOTE | 2024-09-15 10:30 | CT_ITS ---
WS: [id number] CT chest w con* [id number] HISTORY: NODULE OF LUNG TECHNIQUE: Axial imaging performed through the thorax. Coronal and sagittal reformats are submitted. [facility] use at least one of these dose optimization techniques: automated exposure control; mA and/or kV adjustment per patient size (includes targeted exams where dose is mat ched to clinical indication); or iterative reconstruction. CONTRAST: Omnipaque 350; 100 mL IV. DLP: 550.03 mGy.cm COMPARISON: CT 12/21/2023 Lungs and central airway: Previously described nodule is a perifissural nodule measuring 5 mm. These are typically benign and there has been no increase in size. Mild hyperexpansion and centrilobular em physema. No mass or pneumonia. Pleura: Normal. No pleural effusion. Heart and pericardium: Normal size heart with no pericardial effusion. Mediastinum and christiana: RIGHT hilar 8 mm lymph node. Similar to the prior study. Vessels: Mild atherosclerosis aorta. Normal size pulmonary artery. Chest wall and lower neck: No soft tissue masses. Upper abdomen: LEFT adrenal mass measures 2.9 x 3.2 cm and has not increased in size. Normal RIGHT ad renal gland. Well-circumscribed 2.3 cm mass in the subcutaneous soft tissues of the posterior lip RIG HT upper abdomen. Osseous structures: Mild thoracic spondylosis. CT/CT chest w con* [id number] IMPRESSION: 1. Stable RIGHT perifissural nodule measuring 5 mm. No additional follow-up ne cessary. 2. Mild centrilobular emphysema. 3. Stable LEFT adrenal mass measuring 2.9 x 3.2 cm. With no history of maligna ncy this is most likely an adenoma. No increase in size since 12/21/2023. If fur ther evaluation is a clinically thought necessary follow-up MRI adenoma protoco l can be obtained.
== END 2024-09-15 10:12 | disposition home or self-care (01) ==
LOC: RAD 10:13
PROVIDERS: PCP Registered Nurse; Visit Provider Nurse Practitioner Family
DX: R91.1 Solitary pulmonary nodule (principal); J43.2 Centrilobular emphysema; R91.8 Other nonspecific abnormal finding of lung field; I70.0 Atherosclerosis of aorta; R59.0 Localized enlarged lymph nodes; R93.5 Abnormal findings on diagnostic imaging of other abdominal regions, including retroperitoneum; M40.294 Other kyphosis, thoracic region
CPT/HCPCS: 71260

== ENCOUNTER 2024-12-05 10:17 | Outpatient (CLI) | payer MEDICAID, SELFPAY ==
--- NOTE | 2024-12-05 10:22 | MM_ITS ---
WS: [id number] BILATERAL 3D TOMOSYNTHESIS DIGITAL SCREENING MAMMOGRAPHY WITH CAD CLINICAL INFORMATION: SCREEN HISTORY: Screening mammogram. No current complaints. COMPARISON: 2021 TECHNIQUE: Bilateral CC and MLO views. FINDINGS: Scattered fibroglandular densities bilaterally. No suspicious focal mass, asymmetry, calcifications, or architectural distortion. No evidence of malignancy. Punctate and lucent centered calcifications. MM/MM scr tomosynthesis [id number] IMPRESSION: DENSITY: There are scattered areas of fibroglandular density. BI-RADS: 2 - Benign. FOLLOW UP: 1 Year Follow-up Recommend return to annual screening mammography.
== END 2024-12-05 10:18 | disposition home or self-care (01) ==
PROVIDERS: PCP Registered Nurse; Visit Provider Nurse Practitioner Family
DX: Z12.31 Encounter for screening mammogram for malignant neoplasm of breast (principal); R92.323 Mammographic fibroglandular density, bilateral breasts; R92.1 Mammographic calcification found on diagnostic imaging of breast
CPT/HCPCS: 77063; 77067

== ENCOUNTER 2025-02-10 10:55 | Outpatient (CLI) | payer MEDICAID, SELFPAY ==
[2025-02-10 12:04] LABS: Alanine Aminotransferase 25 U/L (0-33); Albumin Level 3.9 g/dL (3.5-5.2); Alkaline Phosphatase 115 U/L (35-105); Anion Gap 15.2 (5-19); Aspartate Amino Transferase 29 U/L (0-32); Blood Urea Nitrogen 14 mg/dL (6-20); Calcium 9.3 mg/dL (8.5-10.5); Carbon Dioxide 23 mmol/L (22-29); Chloride 105 mmol/L (98-107); Globulin 3.4 g/dL (1.3-4.6); Glucose 175 mg/dL (65-115); Osmolality Calculated 291 mOsm/kg (285-295); Potassium 5.2 mmol/L (3.5-5.1); Sodium 138 mmol/L (136-145); Total Protein 7.3 g/dL (6.6-8.7)
[2025-02-15 02:09] LABS: Plasma Renin Activity LC/MS/MS 0.95 ng/mL/h (0.25-5.82)
== END 2025-02-10 10:56 | disposition home or self-care (01) ==
PROVIDERS: PCP Registered Nurse; Visit Provider Internal Medicine
DX: I10 Essential (primary) hypertension (principal)
CPT/HCPCS: 36415; 80053; 82088; 84244

== ENCOUNTER 2025-02-24 09:15 | Outpatient (CLI) | payer MEDICAID, SELFPAY ==
[2025-02-24 10:26] LABS: Alanine Aminotransferase 30 U/L (0-33); Albumin Level 3.7 g/dL (3.5-5.2); Alkaline Phosphatase 139 U/L (35-105); Anion Gap 13.0 (5-19); Aspartate Amino Transferase 33 U/L (0-32); Blood Urea Nitrogen 11 mg/dL (6-20); Calcium 8.7 mg/dL (8.5-10.5); Carbon Dioxide 25 mmol/L (22-29); Chloride 106 mmol/L (98-107); Globulin 3.0 g/dL (1.3-4.6); Glucose 171 mg/dL (65-115); Osmolality Calculated 291 mOsm/kg (285-295); Potassium 5.0 mmol/L (3.5-5.1); Sodium 139 mmol/L (136-145); Total Protein 6.7 g/dL (6.6-8.7)
== END 2025-02-24 09:16 | disposition home or self-care (01) ==
PROVIDERS: PCP Registered Nurse; Visit Provider Nurse Practitioner Family
DX: L73.2 Hidradenitis suppurativa (principal)
CPT/HCPCS: 36415; 80053